=== PATIENT | female | born 1945 | race Caucasian/White ===

== ENCOUNTER 2017-04-13 11:26 | Day surgery (SDC) | payer MEDICARE, BC ==
[2017-04-12 08:41] LABS: HEMATOCRIT 39.3 % (36.0-48.0); HEMOGLOBIN 13.1 g/dL (12-16); MCH 30.8 pg (26.0-34.0); MCHC 33.3 g/dL (31.0-37.0); MCV 92.5 fL (80.0-100.0); MEAN PLATELET VOLUME 10.2 fL (7.4-10.4); RBC 4.25 10x6/uL (4.00-5.40); RDW 12.2 % (11.5-14.5); WBC 7.1 10x3/uL (4.8-10.8)
[2017-04-12 08:56] LABS: ANION GAP 13.1 mmol/L (8-16); CALCIUM 9.5 mg/dL (8.5-10.1); CARBON DIOXIDE 27.3 mmol/L (21.0-32.0); CREATININE - SERUM 1.1 mg/dL (0.6-1.3); POTASSIUM - SERUM 4.4 mmol/L (3.5-5.1)
[2017-04-13 09:07] VITALS: BP 160/80; BMI 35.9
[~2017-04-13 11:26] MED LIST: LISINOPRIL-HCTZ1 T11 PO; LOVASTATIN40 MG PO; OMEPRAZOLE20 M1 PO; RESTORIL15 MG PO
--- NOTE | 2017-04-13 13:00 | NUR ---
1240-RECD TO ROOM 2513. DROWSY. NAUSEA. IV PATENT. LEFT FOOT DRESSING DRY AND INTACT. DENIES PAIN.
--- NOTE | 2017-04-13 15:28 | NUR ---
1400--IV DC'D, PT UP TP DRESS. YARA WALTER 2052--DISCHARGE INSTRUCTIONS GIVEN, PT VERBALIZES UNDERSTANDING. PT OFF UNIT VIA WC. YARA WALTER
--- NOTE | 2017-04-27 13:09 | OP ---
PATIENT NAME: GINA GREEN MEDICAL RECORD: [id number] :45 LOCATION:D.OPS ADMISSION DATE: SURGEON: ADI WILLIS DPM DATE OF OPERATION: 04/13/2017 PREOPERATIVE DIAGNOSES: 1. Hallux abductovalgus, left foot. 2. Instability, left first met cuneiform joint. 3. Plantar plate rupture, left second metatarsophalangeal joint. 4. Hammertoe deformity, left second proximal interphalangeal joint. POSTOPERATIVE DIAGNOSES: 1. Hallux abductovalgus, left foot. 2. Instability, left first met cuneiform joint. 3. Plantar plate rupture, left second metatarsophalangeal joint. 4. Hammertoe deformity, left second proximal interphalangeal joint. PROCEDURES: 1. Nj bunionectomy, left foot. 2. First met cuneiform joint fusion, left foot. 3. Ashley osteotomy, left second met. 4. Plantar plate repair, left second MPJ. 5. PIPJ fusion, left second digit. ANESTHESIA: General with local infiltrate utilizing lidocaine and Marcaine plain, approximately 18 cc total on the first and second ray. HEMOSTASIS: Left thigh tourniquet at 350 mmHg. PREOPERATIVE DETAILS: The patient was taken to the OR, placed on the operating table in a supine position. This was followed by induction of general anesthesia and infiltration of local anesthetic. The left extremity was then prepped and draped in the usual aseptic technique followed by exsanguination of extremity and inflation of tourniquet. PROCEDURE #1: Nj bunionectomy, left foot: A 15-blade was used to create a 4-cm linear incision over the dorsal aspect of the first ray extending to the base of the proximal phalanx of the hallux. The incision was deepened down through subcutaneous tissue to the first MPJ. An inverted L capsulotomy was performed. The medial capsular flap was reflected and the head of the first metatarsal was delivered. A sagittal saw was used to resect the medial eminence. Attention was then directed to the first interspace where a lateral release was performed. PROCEDURE #2: First met cuneiform joint fusion, left foot: The incision as described in #1 was lengthened proximal to the dorsal aspect of the medial cuneiform. The incision was deepened down through subcutaneous tissue being sure to avoid all vital structures. Periosteal incision was made. The first met cuneiform joint was then delivered. A sagittal saw was used to resect the joint. Temporary fixation was placed and a 5-hole plate 1 screw crossing the fusion site was then applied. C-arm was used to verify good alignment as well as placement of the hardware, excellent alignment of the first ray was noted as well. The wound was flushed. The 2-0 Vicryl was used to close the first MPJ as well as the periosteum, 5-0 Vicryl was used to close the subcutaneous tissue, and 5-0 Prolene was used in a subcuticular technique to close the skin followed OPERATIVE REPORT [id number] GINA GREEN by Rubi. PROCEDURE #3 and #4: Ashley osteotomy, left second met as well as plantar plate repair: A 15-blade was used to create a curvilinear incision over the second metatarsal up on top of the PIPJ of the second digit. The incision was deepened down through subcutaneous tissue to the extensor longus tendon, which was transected in a Z fashion. The tendon was retracted in the wound. Second MPJ capsule was then visualized. A longitudinal incision was made in the capsule, freeing the head of the second metatarsal. Sagittal saw was used to create a Ashley osteotomy from dorsal distal to plantar proximal and the capital fragment was pushed proximally and temporarily fixated with a 0.062 inch K-wire. A second K-wire was then drilled in the proximal phalanx of the second digit. A wire retractor was placed over both wires and the joint was distracted. There was noted to be significant tearing and thinning of the central, lateral, and medial aspect of the plantar plate. The flexor longus tendon was visualized in the wound because of the significant disruption of the plantar plate. At this time, a 15-blade was used to free what was left of the attachment of the base of the proximal phalanx of the second digit. At this time, utilizing a scorpion passer as well as a pigtail passer, the FiberWire was placed up through what was left of the plantar plate laterally as well as through the flexor tendon medially. Two small drill holes were then made in the base of the proximal phalanx slightly laterally deviated to try to create a lateral pull vector force. The FiberWire was pulled up through the 2 small drill holes in the proximal phalanx. The K-wires were then removed. The Ashley osteotomy was fixated at this time with 2 pop-off screws and good alignment with approximately 1-2 mm of shortening and while the toe was held in a plantar flexed and laterally deviated position in the transverse plane, surgeon's knots were used to suture the plantar plate and the plantar plate repair. PROCEDURE #5: PIPJ fusion, left second digit: The PIPJ joint was delivered freeing the extensor longus tendon from the top of the PIPJ. A sagittal saw was used to resect the head of the proximal phalanx to the base of the middle phalanx followed by 2 small drill holes down the shaft of the proximal phalanx, middle phalanx, followed by hammer graft, which was placed in the proximal phalanx first and then the middle phalanx was placed on top of the graft and compressing the fusion site. Excellent fixation was noted as well as alignment of the digit. Wound was flushed. The capsule was then repaired with 2-0 Vicryl, the extensor longus tendon was repaired with 5-0 Vicryl. The skin was then reapproximated with 5-0 Vicryl and the skin was closed with 5-0 Prolene in a subcuticular technique followed by Dermabond. Adaptic, 4 x 4 and Conform were used to dress the wound followed by application of a modified Barnhart compression dressing. Tourniquet was deflated. POSTOPERATIVE DETAILS: The patient tolerated the procedure well and left the OR with vital signs stable and vascular status at preoperative levels. The patient was transported to recovery per anesthesia in stable condition. TRANSINT:[id number] Voice Confirmation ID: [id number] DOCUMENT ID: [id number] OPERATIVE REPORT [id number] GINA GREEN MCKAY DPM at 1309 CC: [id number] DICTATION DATE: 04/13/17 1149 DIGITAL PRODUCTION ARTIST: 04/13/17 1315 [facility] 04/13/17 [facility] [address] [id number]
== END 2017-04-13 14:30 | disposition home or self-care (01) ==
LOC: D.OPS 11:26
PROVIDERS: Anesthesiology
DX: M20.12 Hallux valgus (acquired), left foot (principal); M25.375 Other instability, left foot; S93.622A Sprain of tarsometatarsal ligament of left foot, initial encounter; M20.42 Other hammer toe(s) (acquired), left foot; Z01.812 Encounter for preprocedural laboratory examination; X58.XXXA Exposure to other specified factors, initial encounter